=== PATIENT | male | born 2000 | race Two or more races ===

== ENCOUNTER 2025-01-27 12:56 | Emergency (ER) | payer OTHER ==
[~2025-01-27] VITALS: Ht 182.9 cm; Wt 65.8 kg
[2025-01-27 13:01] VITALS: TEMP 97.9
[2025-01-27] MEDS ORDERED: OLANZAPINE 10 MG VIAL IM ONE (13:05)
[2025-01-27] MEDS: OLANZAPINE 10 MG VIAL IM ONE (13:10)
[2025-01-27] MEDS: IV NS 0.9% 1,000 ML BAG IV ONE (13:13)
[2025-01-27 13:28] LABS: CALCIUM, SERUM 8.5 mg/dL (8.5-10.1); CREATININE 1.0 mg/dL (0.6-1.3); SODIUM SERUM 146 mmol/L (136-145); UREA NITROGEN, BLOOD 6 mg/dL (7-18)
[2025-01-27 13:29] LABS: PLATELET COUNT (AUTO) 209 K/uL (150-450); RED BLOOD CELL COUNT(AUTO) 4.82 MIL/uL (4.5-6.0); RED CELL DISTRIBUTION WIDTH 14.8 % (11.5-15.0); WHITE BLOOD COUNT (AUTO) 13.5 K/uL (4.3-11.0)
[2025-01-27 13:32] LABS: ALCOHOL, BLOOD 234 mg/dL (0-10); ASPARTATE AMINOTRANSFERASE 47 U/L (15-37); TOTAL PROTEIN, SERUM 7.4 g/dL (6.4-8.2)
[2025-01-27 14:06] LABS: APPEARANCE,URINE CLEAR (CLEAR); BLOOD, URINE 3+ Ery/uL (NEGATIVE); LEUKOCYTE ESTERASE ,URINE NEGATIVE (NEGATIVE); NITRITE, URINE NEGATIVE (NEGATIVE); UGLUCOSE NEGATIVE (NEGATIVE)
[2025-01-27 14:13] LABS: AMPHETAMINE, URINE NEGATIVE (NEGATIVE); BARBITURATE, URINE NEGATIVE (NEGATIVE); COCCAINE, URINE NEGATIVE (NEGATIVE); OPIATE, URINE NEGATIVE (NEGATIVE)
[2025-01-27 14:15] LABS: ADD URINE CULTURE NO; SQUAMOUS EPITHELIAL CELL,UR None Seen /HPF (None Seen)
[2025-01-27 14:16] LABS: BENZODIAZEPINE, URINE POSITIVE (NEGATIVE); CANNABINOID, URINE POSITIVE (NEGATIVE)
[2025-01-27] MEDS: LORAZEPAM INJ 2 MG/ML VIAL IV ONE (14:30)
[2025-01-27] MEDS: POTASSIUM CL. PREMIX PERIPHER. 50 ML IV SCH (14:40)
[2025-01-27 18:54] VITALS: BP 115/60; O2SAT 98
== END 2025-01-27 18:50 ==
LOC: ER 13:03
DX: R46.2 Strange and inexplicable behavior (principal); R06.02 Shortness of breath; Z79.899 Other long term (current) drug therapy
CPT/HCPCS: 99284; 96372; 96374; 96361; 96375; 93005; 85025; 80048; 80076; 81001; 36415; 80143; 80320; 80307; J2060; J1200; J7030; J7040; J3490; J3480; A4223; G0480